=== PATIENT | male | born 1975 | race Caucasian/White ===

== ENCOUNTER 2022-07-25 15:43 | Emergency (ER) | payer OTHER, BC, SELFPAY ==
[2022-07-25 16:04] VITALS: BP 118/77; PULSE 64; RESP 20; TEMP 36.1; O2SAT 97; BMI 26.6
--- NOTE | 2022-07-25 16:13 | CRLHL7_ITS ---
For Patients: As a result of the Cures Act, medical imaging exams and procedure reports are released immediately into your electronic medical record. You may view this report before your referring provider. If you have questions, please contact your health care provider. Indication: Trauma. Technique: Left 4th phalanx, 3 views. Comparison: None. Findings/impression: Bones: Mildly displaced fracture of the distal tip of the 4th distal phalanx. No extension to the articular surface.. Joint spaces: Unremarkable. Soft tissues: Soft tissue swelling surrounding the fracture site.. Dictated by Theo Tong MD @ 07/25/2022 5:22:24 PM (Electronically Signed)
--- NOTE | 2022-07-25 22:26 | ED.UPPEXIN ---
HPI - Extremity Injury (Upper) General Chief Complaint: Extremity Pain/Injury, Upper Stated Complaint: smashed finger on left hand Time Seen by Provider: 07/25/22 16:17 History of Present Illness HPI narrative: 46-year-old man arriving with spouse to the emergency department after approximately 2 hours ago pinching his gloved left 4th finger between gas canisters that he was moving during his work. Presented initially to urgent care who directed him to the emergency department. Is having quite a bit of pain. Is thought to have sustained a partial amputation. No other injuries are noted. Sounds like he became rather lightheaded. Does not like blood very much. Related Data Home Medications Medication Instructions Recorded Confirmed buspirone 10 mg tablet 10 mg PO BID 07/25/22 07/25/22 lorazepam 0.5 mg tablet 0.5 mg PO Q6H PRN anxiety 07/25/22 07/25/22 pravastatin 40 mg tablet 60 mg PO QPM 07/25/22 07/25/22 Allergies Allergy/AdvReac Type Severity Reaction Status Date / Time No Known Drug Allergies Allergy Verified 07/25/22 16:09 Review of Systems Status of ROS: Reports: 6 or more systems reviewed and unremarkable except as noted in History and below [facility], [facility] Social History Smoking Status: Former smoker Do you use any of these nicotine containing products: None Second hand tobacco smoke exposure: No How often do you have a drink containing alcohol: never AUDIT-C Alcohol total score: 0 Non-prescribed substance use: denies use Exam Narrative: Exam Narrative: Very pleasant. Appears uncomfortable but not demonstrating tremendously. Left hand covered by gauze 4x4s. There is some blood staining. Breathing easily. He has already gone to imaging by the time I am seeing Mr. Lang. My review of imaging shows a distal tuft fracture with evidence of skin disruption. Mildly displaced Return to anesthetize. There is blood staining around the hand. Digital block done with Marcaine. Does require re-dosing on the ulnar side. Excellent anesthesia ultimately achieved. Further exploration reveals indeed partial amputation. Open fracture of the distal tuft of the finger. The nail is fully avulsed but adhered yet to the distal finger. And the finger opens up on the dorsal surface at the distal nail fold/edge exposing most of the nail bed and extending to the fracture site. Laceration extends approximately a cm at the corner of the nail bilaterally. Const: Vital Signs, click to edit/add: Vital Signs - 24 hr 07/25/22 16:04 Temperature 96.9 F L Pulse Rate [Pulse Oximeter] 64 Respiratory Rate 20 Blood Pressure [Ri ght Upper Arm] 118/77 Pulse Oximetry 97 Oxygen Delivery Me thod Room Air Course Vital Signs Vital signs: Initial Vital Signs Temperature 96.9 F L 07/25/22 16:04 Temperature Source Temporal Artery Scan 07/25/22 16:04 Pulse Rate 64 07/25/22 16:04 Respiratory Rate 20 07/25/22 16:04 Blood Pressure 118/77 07/25/22 16:04 Blood Pressure Mean 90 07/25/22 16:04 Blood Pressure Position Sitting 07/25/22 16:04 Pulse Oximetry 97 07/25/22 16:04 Oxygen Delivery Method Room Air 07/25/22 16:04 Vital Signs Temperature 96.9 F L 07/25/22 16:04 Pulse Rate 64 07/25/22 16:04 Respiratory Rate 20 07/25/22 16:04 Blood Pressure 118/77 07/25/22 16:04 Pulse Oximetry 97 07/25/22 16:04 Oxygen Delivery Method Room Air 07/25/22 16:04 Temperature 96.9 F L 07/25/22 16:04 Pulse Rate 64 07/25/22 16:04 Respiratory Rate 20 07/25/22 16:04 Blood Pressure 118/77 07/25/22 16:04 Pulse Oximetry 97 07/25/22 16:04 Oxygen Delivery Method Room Air 07/25/22 16:04 MDM - Extremity Injury (Upper) MDM Narrative Medical decision making narrative: After anesthetized I cleanse this thoroughly with Shur-Clens solution. Sutured with primarily 5-0 Ethilon interrupted sutures. one 6-0 Ethilon suture Two sutures placed to tack down the nail which was replaced under the proximal nail fold for stability. Fracture appears to be well lined up at this point with finger in anatomic position. Antibiotic ointment and nonstick dressing and Julius wrap placed. Also I applied a dorsal splint for temporary use and gave a finger stack splint of I think appropriate size for when dressing removed. Antibiotic prophylaxis for open fracture Work restriction paperwork filled out See patient discharge plan. Discharge Plan Discharge Clinical Impression: Open finger fracture, Laceration, Avulsion of nail Patient Disposition: Home w/ Parent or Adult Condition: Improved Additional Instructions: Keep splinting transitioning to finger stack splint as soon as possible, over the next 3 weeks. Would be revaluated around that time. Regarding sutures, clean up initially as needed. Sutures out in 12 days. Okay to get wet but avoid soaking while sutures are in. Antibiotic ointment for 5-6 days and then to a dry dressing for protection. Report redness passing the 1st knuckle, marked increase in pain, purulent drainage. Elevate for comfort. Ibuprofen, acetaminophen. Remember that each tablet of Percocet has 325 mg of acetaminophen in it. You can take up to 1000 mg of acetaminophen per dose. Cephalexin from [facility] as infection prophylaxis. Prescriptions: No Action pravastatin 40 mg tablet 60 mg PO QPM lorazepam 0.5 mg tablet 0.5 mg PO Q6H PRN (Reason: anxiety) buspirone 10 mg tablet 10 mg PO BID Follow Up/Referrals: Clayton Hughes MD [Primary Care Provider] - Stand Alone Forms: Shaser Info Instructions
== END 2022-07-25 18:28 | disposition home or self-care (01) ==
PROVIDERS: Emergency Provider Family Medicine; PCP Surgery
DX: S61.315A Laceration without foreign body of left ring finger with damage to nail, initial encounter (principal); W23.0XXA Caught, crushed, jammed, or pinched between moving objects, initial encounter; Y99.0 Civilian activity done for income or pay; S62.635B Displaced fracture of distal phalanx of left ring finger, initial encounter for open fracture
CPT/HCPCS: 12001; 73140; 99283; 99284